=== PATIENT | female | born 1985 | race Caucasian/White ===

== ENCOUNTER 2016-12-22 13:54 | Emergency (ER) | payer OTHER ==
[2016-12-22 14:00] VITALS: BMI 33.2
--- NOTE | 2016-12-22 18:25 | PDOC ---
History of Present Illness <Jesse Richardson - Last Filed: 12/22/16 20:56> - General History Source: Patient Exam Limitations: No Limitations - History of Present Illness Initial Comments: 12/22/16 18:25 My chief complaint: Lower abdominal pain and lower back pain History of present illness: Patient is a 31 year old female with no significant medical history here today complaining of lower abdominal pelvic pain that radiates to her back that has worsened over the last 4 days. Patient describes the pain as a cramping sensation today patient had to leave work due to intensity of pain patient reports the pain currently as a 10. Patient denies any nausea or vomiting or any chills or fever or any diarrhea or constipation. Patient does report having urinary frequency without dysuria, hematuria or urgency. Patient denies any flank tenderness. He does report having unprotected sex with this same partner who she does not live with. Pt. has had vaginal discharge yellowish and fishy smelling this last month. Patient is a 4 para 3 with one . Patient reports that her menstrual cycle was normal this month and finished a couple of days ago. 12/22/16 19:12 12/22/16 19:21 Timing/Duration: getting worse (over 4 days ) Severity: severe (pelvic radiates to back ) Associated Symptoms: reports: denies symptoms. denies: fever/chills, nausea/ vomiting <Franca Hawk - Last Filed: 12/25/16 13:04> - General Chief Complaint: Pain Stated Complaint: ABD PAIN Time Seen by Provider: 12/22/16 18:07 Past History <Jesse Richardson - Last Filed: 12/22/16 20:56> - Past Medical History Other medical history: NONE - Psycho/Social/Smoking Cessation Hx Anxiety: No Suicidal Ideation: No Smoking History: Never smoked Hx Alcohol Use: No Drug/Substance Use Hx: No Substance Use Type: None <Franca Hawk - Last Filed: 12/25/16 13:04> - Past Medical History Allergies/Adverse Reactions: Allergies Allergy/AdvReac Type Severity Reaction Status Date / Time No Known Allergies Allergy Verified 12/22/16 14:00 Home Medications: Ambulatory Orders NK [No Known Home Medication] 12/22/16 Review of Systems - Review of Systems Able to Perform ROS?: Yes Constitutional: No: Symptoms Reported HEENTM: No: Symptoms Reported Respiratory: No: Symptoms reported Cardiac (ROS): No: Symptoms Reported ABD/GI: Yes: Abdominal cramping (pelvic x 4 days ) : Yes: Frequency. No: Burning, Dysuria, Discharge, Flank Pain, Hematuria, Incontinence, Pain, Urgency Musculoskeletal: Yes: Back Pain (lower back b/l ) Integumentary: No: Symptoms Reported Neurological: No: Symptoms reported <Franca Hawk - Last Filed: 12/25/16 13:04> *Physical Exam - Vital Signs Last Vital Signs Temp Pulse Resp BP Pulse Ox 98.7 F 68 20 110/73 99 12/22/16 13:58 12/22/16 13:58 12/22/16 13:58 12/22/16 13:58 12/22/16 13:58 <Jesse Richardson - Last Filed: 12/22/16 20:56> - Vital Signs Last Vital Signs Temp Pulse Resp BP Pulse Ox 98.7 F 68 20 110/73 99 12/22/16 13:58 12/22/16 13:58 12/22/16 13:58 12/22/16 13:58 12/22/16 13:58 - Physical Exam General Appearance: Yes: Appropriately Dressed Respiratory/Chest: positive: Lungs Clear, Normal Breath Sounds. negative: Chest Tender, Respiratory Distress Cardiovascular: positive: Regular Rhythm, Regular Rate, S1, S2 Female Pelvic Exam: positive: cervical os closed, normal adnexa, normal size ovaries, CMT, discharge (yellowish white thin fowl smelling ). negative: lesions, Bartholin mass, adnexal tenderness, vaginal bleeding Gastrointestinal/Abdominal: positive: Normal Bowel Sounds, Tender (pelvic ), Soft. negative: Organomegaly, Increased Bowel Sounds, Distended, Guarding, Rebound, Tenderness, Mass, Hepatomegaly, Spleenomegaly Musculoskeletal: positive: Normal Inspection, Other (paraspinal muscle tenderness b/l lumbar area). negative: CVA Tenderness, CVA Tenderness (R), CVA Tenderness (L), Vertebral Tenderness Integumentary: positive: Normal Color Neurologic: positive: Alert, Normal Response, Responsive <Franca Hawk - Last Filed: 12/25/16 13:04> ED Treatment Course - LABORATORY CBC & Chemistry Diagram: 12/22/16 19:36 12/22/16 19:36 - ADDITIONAL ORDERS Additional order review: Laboratory Results 12/22/16 12/22/16 12/22/16 19:36 19:36 19:06 Sodium 140 Potassium 4.0 Chloride 107 Carbon Dioxide 24 Anion Gap 9 BUN 12 Creatinine 0.5 L Creat Clearance w eGFR > 60 Random Glucose 85 Calcium 8.8 Total Bilirubin 0.7 AST 15 ALT 28 Alkaline Phosphatase 54 Total Protein 7.4 Albumin 4.1 Serum , Qual Negative Urine Color Dkyellow Urine Appearance Slcloudy Urine pH 5.0 Urine Protein Negative Urine Glucose (UA) Negative Urine Ketones Negative Urine Blood Negative Urine Nitrite Negative Urine Bilirubin Negative Urine Urobilinogen Negative Ur Leukocyte Esterase Negative 12/22/16 19:36 RBC 4.11 MCV 93.8 MCHC 35.1 RDW 12.7 MPV 9.3 Neutrophils % 52.9 Lymphocytes % 40.3 H Monocytes % 4.9 Eosinophils % 1.2 Basophils % 0.7 <Jesse Richardson - Last Filed: 12/22/16 20:56> - LABORATORY CBC & Chemistry Diagram: 12/22/16 19:36 12/22/16 19:36 <Franca Hawk - Last Filed: 12/25/16 13:04> Medical Decision Making - Medical Decision Making 12/22/16 18:27 Patient is a 31 year old female with no significant medical history here today complaining of lower abdominal pelvic pain that radiates to her back that has worsened over the last 4 days. Patient describes the pain as a cramping sensation today patient had to leave work due to intensity of pain patient reports the pain currently as a 10. Patient denies any nausea or vomiting or any chills or fever or any diarrhea or constipation. Patient does report having urinary frequency without dysuria, hematuria or urgency. Patient denies any flank tenderness. He does report having unprotected sex with this same partner who she does not live with. Pt has had fishy smelling vaginal discharge for one month. Patient is a 4 para 3 with one . Patient reports that her menstrual cycle was normal this month and finished a couple of days ago. Differential diagnosis to include r/o STD, r/o , miscarriage, r/o UTI, pyelonephrosis. r/o PID pelvic pain radiates to lower back PLAN: cbc with diff cmp urinalysis chlamydia/GC RPR genital culture serum 12/22/16 18:28 12/22/16 19:22 12/22/16 19:23 pt. signed out to MARVIN Richardson <Franca Hawk - Last Filed: 12/25/16 13:04> *DC/Admit/Observation/Transfer - Discharge Dispostion Admit: No <Jesse Richardson - Last Filed: 12/22/16 20:56> <Franca Hawk - Last Filed: 12/25/16 13:04> Diagnosis at time of Disposition: PID (pelvic inflammatory disease) - Discharge Dispostion Disposition: HOME - Patient Instructions Printed Discharge Instructions: DI for Pelvic Inflammatory Disease Additional Instructions: Richie un seguimiento con jones mdico en 2 semanas. [place] los medicamentos segn lo prescrito. Los resultados para el panel de STD de jones swab vaginal debe ser resultado en 72 horas. Si no recibe charisse resultados dentro de pablo plazo, por favor llmenos. Asegrese de lizz los medicamentos con los alimentos. Mant ngase fuera florencio tanto allie sea posible mientras est tomando pablo medicamento. Charisse sntomas deberan mejorar en lucas semana. No hay sexo jose de jesus 3 semanas por favor. Follow up with your doctor in 2 weeks. Take medications as prescribed. The results for STD panel from your vaginal swab should be resulted in 72 hours. If you do not receive your results within this time frame, please call us. Be sure to take medications with food. Stay out of the sun as much as possible while taking this medication. You symptoms should get better within a week. No sex for 3 weeks please. Print Language: BENGALI
[2016-12-22 19:30] LABS: URINE APPEARANCE SLCLOUDY; URINE BILIRUBIN NEGATIVE (NEGATIVE); URINE BLOOD NEGATIVE (NEGATIVE); URINE COLOR DKYELLOW; URINE GLUCOSE (UA) NEGATIVE (NEGATIVE); URINE KETONE NEGATIVE (NEGATIVE); URINE LEUK ESTERASE NEGATIVE (NEGATIVE); URINE NITRITE NEGATIVE (NEGATIVE); URINE PROTEIN NEGATIVE (NEGATIVE); URINE UROBILINOGEN NEGATIVE mg/dL (0.2-1.0)
--- NOTE | 2016-12-22 19:37 | PDOC ---
*Physical Exam - Vital Signs Last Vital Signs Temp Pulse Resp BP Pulse Ox 98.7 F 68 20 110/73 99 12/22/16 13:58 12/22/16 13:58 12/22/16 13:58 12/22/16 13:58 12/22/16 13:58 ED Treatment Course - LABORATORY CBC & Chemistry Diagram: 12/22/16 19:36 12/22/16 19:36 Medical Decision Making - Medical Decision Making 12/22/16 19:36 agree with [facility] WAITRESS/WAITER's evaluation, assessment, and plan. 31 F with suprapubic pain. - Pelvic exam to r/o CMT - UA, UCx - GF/CT amp - UPT Pt signed out to night team at 7PM. *DC/Admit/Observation/Transfer Diagnosis at time of Disposition: PID (pelvic inflammatory disease) - Discharge Dispostion Disposition: HOME - Patient Instructions Printed Discharge Instructions: DI for Pelvic Inflammatory Disease Additional Instructions: Richie un seguimiento con jones mdico en 2 semanas. [place] los medicamentos segn lo prescrito. Los resultados para el panel de STD de jones swab vaginal debe ser resultado en 72 horas. Si no recibe charisse resultados dentro de pablo plazo, por favor llmenos. Asegrese de lizz los medicamentos con los alimentos. Mant ngase fuera florencio tanto allie sea posible mientras est tomando pablo medicamento. Charisse sntomas deberan mejorar en lucas semana. No hay sexo jose de jesus 3 semanas por favor. Follow up with your doctor in 2 weeks. Take medications as prescribed. The results for STD panel from your vaginal swab should be resulted in 72 hours. If you do not receive your results within this time frame, please call us. Be sure to take medications with food. Stay out of the sun as much as possible while taking this medication. You symptoms should get better within a week. No sex for 3 weeks please. Print Language: IRAQI
[2016-12-22 19:40] LABS: BASOPHIL 0.7 % (0-2.0); EOSINOPHIL 1.2 % (0-4.5); MCH 32.9 pg (25.7-33.7); MCHC 35.1 g/dl (32.0-36.0); MEAN CELL VOLUME 93.8 fl (80-96); MEAN PLT VOLUME 9.3 fl (7.5-11.1); NEUTROPHILS 52.9 % (42.8-82.8); PLATELET COUNT 223 K/MM3 (134-434); RDW 12.7 % (11.6-15.6); WHITE BLOOD COUNT 7.1 K/mm3 (4.0-10.0)
[2016-12-22 20:21] LABS: ALBUMIN 4.1 g/dl (3.4-5.0); ANION GAP 9 (8-16); BILIRUBIN,TOTAL 0.7 mg/dL (0.2-1.0); CALCIUM 8.8 mg/dL (8.5-10.1); CO2 24 mmol/L (21-32); CREATININE 0.5 mg/dL (0.55-1.02); GLUCOSE,RANDOM 85 mg/dL (74-106); SGOT/AST 15 U/L (15-37); SGPT/ALT 28 U/L (12-78); TOT PROT 7.4 g/dl (6.4-8.2)
[2016-12-22 20:22] LABS: ALK PHOS 54 U/L (45-117)
[2016-12-22] MEDS ORDERED: AZITHROMYCIN 250 MG TABLET (FP) PO ONE (20:33)
[2016-12-22] MEDS ORDERED: AZITHROMYCIN 250 MG TABLET (FP) ONE (20:53)
[2016-12-22] MEDS ORDERED: CEFTRIAXONE 50 ML ONE (20:53)
[2016-12-22 21:02] VITALS: BP 104/70; PULSE 65; TEMP 98.2
== END 2016-12-22 21:46 | disposition home or self-care (01) ==
LOC: JER 13:54
DX: N73.9 Female pelvic inflammatory disease, unspecified (principal)
CPT/HCPCS: 36415; 80053; 81003; 84703; 85025; 87070; 87086; 87186; 87205; 87491; 87591; 99283-25

== ENCOUNTER 2017-05-20 22:33 | Emergency (ER) | payer SELFPAY ==
[2017-05-20 23:02] VITALS: PULSE 65; BMI 31.5
--- NOTE | 2017-05-20 23:05 | PDOC ---
History of Present Illness - General History Source: Patient Exam Limitations: No Limitations - History of Present Illness Initial Comments: 05/20/17 23:55 The patient is a 31 year old female A1, with no significant past medical history, who presents to the emergency department with, two days of diffuse abdominal pain and emesis. She describes her abdominal pain as a constant, dull, achy pain. Secondary to her symptoms, she reports decreased PO intake, dizziness, and vaginal spotting. As per patient, she took an at home test which was positive. She has had vaginal spotting of about a pad a day. She reports episodes of nonbloody emesis. She denies any care. She denies recent fevers, chills, headache or dizziness. She denies recent nausea, diarrhea or constipation. She denies recent dysuria, frequency, urgency or hematuria. She denies recent chest pain or shortness of breath. Allergies: NKA Past surgical history: None reported. Social history: Nonsmoker. Denies EtOH use and recreational drug use. <Maty Holt - Last Filed: 05/20/17 23:55> <Idania Winchester - Last Filed: 05/21/17 02:42> - General Chief Complaint: Pain Stated Complaint: FATIGUE Time Seen by Provider: 05/20/17 23:00 Past History <Maty Holt - Last Filed: 05/20/17 23:55> - Suicide/Smoking/Psychosocial Hx Smoking History: Never smoked Hx Alcohol Use: No Drug/Substance Use Hx: No Substance Use Type: None <Idania Winchester - Last Filed: 05/21/17 02:42> - Past Medical History Allergies/Adverse Reactions: Allergies Allergy/AdvReac Type Severity Reaction Status Date / Time No Known Allergies Allergy Verified 05/20/17 22:48 Home Medications: Ambulatory Orders NK [No Known Home Medication] 12/22/16 Review of Systems - Review of Systems Able to Perform ROS?: Yes Comments:: 05/20/17 23:56 GENERAL/CONSTITUTIONAL: No fever or chills. No weakness. HEAD, EYES, EARS, NOSE AND THROAT: No change in vision. No ear pain or discharge. No sore throat. CARDIOVASCULAR: No chest pain or shortness of breath. RESPIRATORY: No cough, wheezing, or hemoptysis. GASTROINTESTINAL: +Abdominal pain. +Emesis. No diarrhea or constipation. GENITOURINARY: +Vaginal bleeding. No dysuria, frequency, or change in urination. MUSCULOSKELETAL: No joint or muscle swelling or pain. No neck or back pain. SKIN: No rash NEUROLOGIC: +Dizziness. No headache, loss of consciousness, or change in strength/sensation. ENDOCRINE: No increased thirst. No abnormal weight change. HEMATOLOGIC/LYMPHATIC: No anemia, easy bleeding, or history of blood clots. ALLERGIC/IMMUNOLOGIC: No hives or skin allergy. All Other Systems: Reviewed and Negative <Maty Holt - Last Filed: 05/20/17 23:55> *Physical Exam - Vital Signs Last Vital Signs Temp Pulse Resp BP Pulse Ox 98.9 F 65 16 111/64 100 05/20/17 22:49 05/20/17 22:49 05/20/17 22:49 05/20/17 22:49 05/20/17 22:49 - Physical Exam Comments: 05/20/17 23:56 GENERAL: Awake, alert, and fully oriented, in no acute distress HEAD: No signs of trauma EYES: PERRLA, EOMI, sclera anicteric, conjunctiva clear ENT: Auricles normal inspection, hearing grossly normal, nares patent, oropharynx clear without exudates. Moist mucosa NECK: Normal ROM, supple, no lymphadenopathy, JVD, or masses LUNGS: Breath sounds equal, clear to auscultation bilaterally. No wheezes, and no crackles HEART: Regular rate and rhythm, normal S1 and S2, no murmurs, rubs or gallops ABDOMEN: Soft, nontender, normoactive bowel sounds. No guarding, no rebound. No masses EXTREMITIES: Normal range of motion, no edema. No clubbing or cyanosis. No cords, erythema, or tenderness NEUROLOGICAL: Cranial nerves II through XII grossly intact. Normal speech, normal gait SKIN: Warm, Dry, normal turgor, no rashes or lesions noted. <Maty Holt - Last Filed: 05/20/17 23:55> - Vital Signs Last Vital Signs Temp Pulse Resp BP Pulse Ox 98.9 F 65 16 111/64 100 05/20/17 22:49 05/20/17 22:49 05/20/17 22:49 05/20/17 22:49 05/20/17 22:49 <Idania Winchester - Last Filed: 05/21/17 02:42> ED Treatment Course - LABORATORY CBC & Chemistry Diagram: 05/20/17 23:30 05/20/17 23:30 - ADDITIONAL ORDERS Additional order review: Laboratory Results 05/20/17 05/20/17 22:57 22:57 Urine Color Yellow Urine Appearance Cloudy Urine pH 7.0 D Ur Specific [place] 1.014 Urine Protein Negative Urine Glucose (UA) Negative Urine Ketones Trace H Urine Blood 2+ H Urine Nitrite Negative Urine Bilirubin Negative Urine Urobilinogen 4.0 e.u/dl H Ur Leukocyte Esterase Negative Urine WBC (Auto) 1 Urine RBC (Auto) 16 Ur Epithelial Cells Rare Calcium Oxalate Crystal Few Urine Bacteria Rare Hyaline Casts 1 Urine Mucus Rare Urine HCG, Qual Positive 05/20/17 23:30 RBC 4.14 MCV 93.5 MCHC 34.6 RDW 13.0 MPV 9.2 Neutrophils % 55.1 Lymphocytes % 37.7 Monocytes % 5.5 Eosinophils % 1.2 Basophils % 0.5 - Medications Given in the ED: ED Medications Discontinued Medications Generic Name Dose Route Start Last Admin Trade Name Freq PRN Reason Stop Dose Admin Ondansetron HCl 4 mg 05/20/17 23:20 05/20/17 23:40 Zofran Injection IVPB 05/20/17 23:21 4 mg ONCE ONE Administration Sodium Chloride 1,000 ml 05/20/17 23:07 05/20/17 23:39 Normal Saline - IV 05/20/17 23:08 1,000 ml ONCE ONE Administration <Maty Holt - Last Filed: 05/20/17 23:55> - LABORATORY CBC & Chemistry Diagram: 05/20/17 23:30 05/20/17 23:30 <Idania Winchester - Last Filed: 05/21/17 02:42> *DC/Admit/Observation/Transfer - Attestations Scribe Attestion: 05/20/17 23:56 Documentation prepared by Maty Holt, acting as medical device assembler for Idania Winchester MD. <Maty Holt - Last Filed: 05/20/17 23:55> - Discharge Dispostion Admit: No <Idania Winchester - Last Filed: 05/21/17 02:42> Diagnosis at time of Disposition: 7 weeks gestation of , Morning sickness, Type O blood, Rh positive - Discharge Dispostion Disposition: HOME Condition at time of disposition: Stable - Referrals Referrals: May Ramos MD [Staff Physician] - - Patient Instructions Printed Discharge Instructions: Hyperemesis Gravidarum, Eating for Appropriate Weight Gain During
[2017-05-20] MEDS ORDERED: SODIUM CHLORIDE 0.9% 500 ML INFUS.BAG IV ONE (23:07)
[2017-05-20 23:14] LABS: URINE APPEARANCE CLOUDY; URINE BILIRUBIN NEGATIVE (NEGATIVE); URINE BLOOD 2+ (NEGATIVE); URINE COLOR YELLOW; URINE GLUCOSE (UA) NEGATIVE (NEGATIVE); URINE KETONE TRACE (NEGATIVE); URINE LEUK ESTERASE NEGATIVE (NEGATIVE); URINE NITRITE NEGATIVE (NEGATIVE); URINE PROTEIN NEGATIVE (NEGATIVE); URINE UROBILINOGEN 4.0 E.U/dl mg/dL (0.2-1.0)
[2017-05-20] MEDS ORDERED: ONDANSETRON 4 MG/2 ML VIAL IVPB ONE (23:20)
[2017-05-20] MEDS ORDERED: ONDANSETRON 4 MG/2 ML VIAL ONE (23:31)
[2017-05-20 23:38] LABS: BASO % 0.5 % (0-2.0); EOS % 1.2 % (0-4.5); HEMATOCRIT 38.7 % (32.4-45.2); HEMOGLOBIN 13.4 GM/dL (10.7-15.3); LYMPH % 37.7 % (8-40); MCH 32.3 pg (25.7-33.7); MCHC 34.6 g/dl (32.0-36.0); MEAN CELL VOLUME 93.5 fl (80-96); MEAN PLT VOLUME 9.2 fl (7.5-11.1); MONO % 5.5 % (3.8-10.2); NEUT % 55.1 % (42.8-82.8); PLATELET COUNT 238 K/MM3 (134-434); RBC 4.14 M/mm3 (3.60-5.2); WHITE BLOOD COUNT 8.6 K/mm3 (4.0-10.0)
[2017-05-20 23:45] LABS: CALCIUM OXALATE CRYSTALS FEW /hpf (NONE SEEN); EPI CELLS RARE /HPF (FEW); URINE BACTERIA RARE /hpf (NONE SEEN); URINE HYALINE CAST 1 /lpf; URINE MUCUS RARE
[2017-05-21 00:08] LABS: ALBUMIN 3.8 g/dl (3.4-5.0); ALK PHOS 54 U/L (45-117); ANION GAP 11 (8-16); BILIRUBIN,TOTAL 0.4 mg/dL (0.2-1.0); BLOOD UREA NITROGEN 6 mg/dL (7-18); CALCIUM 8.8 mg/dL (8.5-10.1); CHLORIDE 104 mmol/L (98-107); CO2 23 mmol/L (21-32); CREATININE 0.4 mg/dL (0.55-1.02); GLUCOSE,RANDOM 85 mg/dL (74-106); POTASSIUM 3.7 mmol/L (3.5-5.1); SGOT/AST 11 U/L (15-37); SGPT/ALT 21 U/L (12-78); SODIUM 138 mmol/L (136-145); TOT PROT 7.4 g/dl (6.4-8.2)
[2017-05-21 03:14] VITALS: BP 110/78; TEMP 98.5
== END 2017-05-21 03:14 | disposition home or self-care (01) ==
LOC: JER 22:33
PROC: 3E033GC Introduction of Other Therapeutic Substance into Peripheral Vein, Percutaneous Approach (ICD-10-PCS; principal; 2017-05-20)
DX: O26.891 Other specified pregnancy related conditions, first trimester (principal); O21.0 Mild hyperemesis gravidarum; Z3A.01 Less than 8 weeks gestation of pregnancy
CPT/HCPCS: 36415; 76801-TC; 80053; 81003; 81015; 84702; 84703; 85025; 86850; 86900; 86901; 99282-25

== ENCOUNTER 2017-12-29 07:35 | Inpatient (IN) | payer OTHER ==
[2017-12-29] MEDS ORDERED: AMPICILLIN SODIUM 2 GM VIAL ONE (08:14)
[2017-12-29] MEDS ORDERED: ELECTROLYTE-148 SOLN 500 ML IV ONE (08:15)
[2017-12-29] MEDS ORDERED: AMPICILLIN - 2 GM in SODIUM CHLORIDE 100 ML IVPB ONE (08:20)
[2017-12-29 08:53] LABS: BASO % 0.4 % (0-2.0); EOS % 0.8 % (0-4.5); HEMATOCRIT 32.6 % (32.4-45.2); HEMOGLOBIN 11.2 GM/dL (10.7-15.3); LYMPH % 28.4 % (8-40); MCH 33.3 pg (25.7-33.7); MCHC 34.4 g/dl (32.0-36.0); MEAN CELL VOLUME 96.8 fl (80-96); MEAN PLT VOLUME 8.5 fl (7.5-11.1); MONO % 5.3 % (3.8-10.2); NEUT % 65.1 % (42.8-82.8); PLATELET COUNT 168 K/MM3 (134-434); RBC 3.37 M/mm3 (3.60-5.2); RDW 14.7 % (11.6-15.6); WHITE BLOOD COUNT 5.4 K/mm3 (4.0-10.0)
[2017-12-29 09:06] VITALS: BMI 33.6
[2017-12-29 09:30] LABS: INR 0.91 (0.83-1.09); PROTHROMBIN TIME (PATIENT) 10.3 SEC (9.7-13.0)
[2017-12-29 09:32] LABS: ANION GAP 11 MMOL/L (8-16); BLOOD UREA NITROGEN 6 mg/dL (7-18); CALCIUM 8.1 mg/dL (8.5-10.1); CHLORIDE 109 mmol/L (98-107); CO2 20 mmol/L (21-32); CREATININE 0.3 mg/dL (0.55-1.02); GLUCOSE,RANDOM 85 mg/dL (74-106); POTASSIUM 3.6 mmol/L (3.5-5.1); SODIUM 140 mmol/L (136-145)
[2017-12-29] MEDS ORDERED: CITRIC ACID/SODIUM CITRATE 30 ML UNIT-DOSE CUP PO ONE (09:41)
[2017-12-29] MEDS ORDERED: ELECTROLYTE-148 SOLN 1,000 ML IV SCH (09:45)
--- NOTE | 2017-12-29 10:13 | HP ---
Past Medical History - Primary Care Physician PCP:: May Ramos - Admission Chief Complaint: 32 yrs , previous c/section x2 , requests for voluntory sterlization, . h/o sropm at 6.30 am , onset LP at 7.20 AM . by sono 38.4 weeks . by dtaes 39.2 weeks History of Present Illness: PNC at [address] [place] [address] . panel O pos, rpr nr, rubella immune , hbsag neg, quantiferon neg, , hiv neg, gbs pos , .gc/c/t neg 1 hr gtt 153. 3 hr gtt 74, 164, 140, 83 ( wnl) , sickle neg treated for bv treated with flagyl po . serial sonogram were done by [facility] to check growth . 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 Weeks Gestation by Dates: 39.1 ...EDC by Dates: 01/03/18 ...EDC by Sono: 01/08/18 (38.4 weeks ) Additional OB History: G1 08/20/2003 , 40 wks 7lbs. G2 01/08/2006 primaruy c/section 8lb breech 38 weeks. G3 10/20/10 repeat c/section 39 weeks 7lbs. g4 2010 Ind ab Infectious Disease: Yes: STD's (h/o chlamydia) Psych: Yes: Other (no h/o mental illness) Endocrine: No: Hypothyroidism - Past Surgical History Past Surgical History: Yes: (01/08/2006, 10/20/10) Hx Myomectomy: No Hx Transabdominal Cerclage: No - Smoking History Smoking history: Never smoked Have you smoked in the past 12 months: No - Alcohol/Substance Use Hx Alcohol Use: No History of Substance Use: reports: None Home Medications - Allergies Allergies/Adverse Reactions: Allergies Allergy/AdvReac Type Severity Reaction Status Date / Time No Known Allergies Allergy Verified 12/05/17 02:53 - Home Medications Home Medications: Ambulatory Orders NK [No Known Home Medication] 12/22/16 Physical Exam - Maternity Vital Signs: Vital Signs Temperature 98.8 F 12/29/17 07:35 Pulse Rate 76 12/29/17 07:35 Respiratory Rate 20 12/29/17 07:35 Blood Pressure 103/64 12/29/17 07:35 O2 Sat by Pulse Oximetry (%) Selected Entries 12/29/17 07:35 Weight 178 lb Constitutional: Yes: Well Nourished, Moderate Distress, Obese Eyes: Yes: WNL HENT: Yes: Normocephalic Neck: Yes: WNL Cardiovascular: Yes: WNL, Regular Rate and Rhythm Lungs: Clear to auscultation Breast(s): Yes: WNL - Abdominal Exam/OB Fundal Height: 40 Number of Fetuses: Single Presentation: Vertex Contractions: Yes Regularity: Regular (3-5 min) Intensity: Mild/Mod Monitor Mode: External Heart Rate Location: [facility] Category: I Accelerations: Uniform Decelerations: None - Vaginal Exam/OB Speculum Exam: No Dilatation (cm): 3-4 Effacement (%): 90 Amniotic Membrane Status: Ruptured Nitrazine Test: Positive Amniotic Fluid: Yes: Clear Presentation: Vertex/Position Station: -3 (-3/-2) - Physical Exam Musculoskeletal: Yes: WNL Extremities: Yes: WNL. No: Calf Tenderness Edema: Yes Edema: LLE: 1+, RLE: 1+ Integumentary: Yes: WNL, Incision (pfannensteilscar) Deep Tendon Reflex Grade: Normal +2 ...Motor Strength: WNL Psychiatric: Yes: WNL, Alert, Oriented - Labs Lab Results: CBC, BMP 12/29/17 08:30 12/29/17 08:30 Laboratory Tests 12/29/17 08:30 PT with INR 10.30 INR 0.91 PTT (Actin FS) 27.0 Hemorrhage Risk Assessment - Risk Factors Medium Risk Factors: Yes: Prior , uterine surgery,or multiple laparotomies Risk Score: 1 Risk Level: Medium Risk Problem List - Problems (1) with 39 completed weeks gestation Code(s): Z3A.39 - 39 WEEKS GESTATION OF (2) Previous section Code(s): Z98.891 - HISTORY OF UTERINE SCAR FROM PREVIOUS SURGERY (3) First stage of labor established Code(s): UMN5722 - (4) Multiparity Code(s): Z64.1 - PROBLEMS RELATED TO MULTIPARITY (5) SROM (spontaneous rupture of membranes) Code(s): UED7203 - (6) Obesity (BMI 30.0-34.9) Code(s): E66.9 - OBESITY, UNSPECIFIED Assessment/Plan 32 yrs , 39.2 weeks by dates & 38.4 weeks by sono admitted due to srom & labor requests for repeat c/section & voluntory sterlization plan Repeat LFTC/Section + BTL
[2017-12-29] MEDS ORDERED: morphine SULFATE/Preservative Free 0.5 MG/ML (1cc Syringe) ONE (10:33)
[2017-12-29] MEDS ORDERED: ONDANSETRON 4 MG/2 ML VIAL IVPUSH PRN (10:51)
[2017-12-29] MEDS ORDERED: ACETAMINOPHEN 325 MG TABLET (FP) PO PRN (10:51)
[2017-12-29] MEDS ORDERED: OXYTOCIN 20 UNITS in 0.9% NS 20 UNIT/1,000 ML INFUS.BAG IV ONE ×2 (11:11→13:43)
[2017-12-29] MEDS ORDERED: ceFAZolin SODIUM 1 GM VIAL ONE ×2 (11:17→16:17)
[2017-12-29] MEDS ORDERED: OXYTOCIN 10 UNITS/ML VIAL ONE ×2 (11:18)
[2017-12-29] MEDS ORDERED: MIDAZOLAM HCL 2 MG/2 ML SINGLE DOSE VIAL ONE (11:18)
[2017-12-29 11:51] LABS: ARTERIAL BLD GAS O2 SATURATION 75.8 % (90-98.9); ARTERIAL BLOOD GAS BASE EXCESS -2.8 meq/l (-2-2); ARTERIAL BLOOD GAS PCO2 40.4 mmHg (35-45); ARTERIAL BLOOD GAS PO2 35.9 mmHg (80-100); ARTERIAL BLOOD GAS pH 7.36 (7.35-7.45)
[2017-12-29 11:58] LABS: VENOUS PC02 QNS mmHg (38-52); VENOUS PO2 QNS mmHg (28-48)
[2017-12-29 12:00] LABS: VENOUS PH QNS (7.32-7.42)
[2017-12-29] MEDS ORDERED: SENNOSIDES/DOCUSATE COMBO (SENNA PLUS) TABLET (UD) PO PRN (12:44)
[2017-12-29] MEDS ORDERED: METHYLERGONOVINE MALEATE 0.2 MG/1 ML AMP IM PRN (12:44)
--- NOTE | 2017-12-29 13:04 | PN ---
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 Indication : 38.4 weeks previous c/section in labor ,srom, voluntory sterlization , obesity intra op ,course uneventful
--- NOTE | 2017-12-29 13:12 | OP ---
Operative Note - Note: Operative Date: 12/29/17 Pre-Operative Diagnosis: 38.4 weeks, previous c/sx2 , srom,labor, voultory sterlization, obesity Operation: Repeat LFTC/Section , BTL Findings: 11,00AM baby Girl ROP position, baby head moved up in the uterus , delivered as footling breech presentation , 9/9 , wt 7'15" , both tubes & ovaries normal. both tubes ligated & cut by modified renae technique Dr Anton Bernard Judo Teacher present in the room Surgeon: May Ramos Medical Sociologist: Erendira Redman Anesthesiologist/DIP LUBE OPERATOR: Alhaji Sun Anesthesia: Spinal Specimens Removed: placenta. cord blood segment for cord gas. cord blood Estimated Blood Loss (mls): 700 Drains, Volume Out (mls): 200 (rubio output will color ) Operative Report Dictated: Yes
[2017-12-29] MEDS: OXYTOCIN 20 UNITS in 0.9% NS 20 UNIT/1,000 ML INFUS.BAG IV SCH ×2 (13:41→23:00)
[2017-12-29] MEDS: IBUPROFEN 800 MG/8 ML IJ IVPB PRN (13:48)
[2017-12-29] MEDS ORDERED: IBUPROFEN 800 MG/8 ML IJ IVPB ONE (13:51)
--- NOTE | 2017-12-29 14:32 | OP ---
DATE OF OPERATION: 12/29/2017 PREOPERATIVE DIAGNOSES: At 38-4/7 weeks, previous sections x2, spontaneous rupture of membranes, and active labor, voluntary sterilization. 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 FINDINGS: This is a 32-year-old, 5, para 3-0-1-3. She is 38-4/7 weeks by sonogram, 39-2/7 weeks by dates, has rupture of membranes spontaneously since 6: 30 a.m. and onset of labor at 7:20 a.m. Patient was asif regularly between 2 to 4 minutes and the cervix was dilated up to 5 to 6 cm, 100%, -3 station at 10.30 AM before the section. After the delivery, baby girl, 9 and 9, ROP position, weight 7 pounds 15 ounces, 20 inches length. PROCEDURE: Abdomen was shaved, prepped, Burrows catheter was placed. She was taken to the operating room table and spinal anesthesia was given. She was placed in supine position. The abdomen was painted and draped in the usual manner. Pfannenstiel incision was made through skin, subcutaneous tissue. Anterior rectus sheath was incised transversely. Bleeding points were clamped and cauterized. Rectus muscle was from the rectus sheath, parietal peritoneum was opened vertically. Then low-flap parietal peritoneum was incised and lower uterine segment was isolated. Amniotic fluid was clear. The baby was in ROP position and was brought up in the incision and the baby moved up into the uterus and it was difficult to bring the head down so delivered as a footling breech presentation, first one leg, then the second leg was brought out, and then the body and arms and lastly the head was delivered. It was a baby girl, at 11 a.m. Baby's cord was clamped, cut, cord blood was collected. Dr. Marco Antonio Walton, o and m supervisor, was present in the room. 9 and 9. Baby's weight is 7 pounds 15 ounces, and the height is 20 inches long. Cord segment was sent for cord blood gas and the cord blood was collected. Placenta was removed completely with the membranes. Uterine cavity was cleaned. Then the uterus incision was closed in 2 layers, the first layer with a continuous locking with a Biosyn 0 suture, 2nd layer was a continuous intermittent locking with a Biosyn 0 suture. Hemostasis was verified and bladder peritoneum also was closed with a Biosyn 0 suture. Both ovaries were normal. First the left tube, then the right tube, in the mid ampullary portion, was doubly ligated with a plain 2-0 catgut and the portion of the tube above the ligature was cut and sent for Pathology examination and endosalpinx was cauterized. This procedure was done on both tubes, and the tubes were sent for pathology examination separately in container. Then irrigation was done. Sponge, instrument, needle count was correct and the closure of the abdomen was done. Parietal peritoneum was closed with a Vicryl 0 suture. Muscles were reapproximated together with a Vicryl 0 suture, then interrupted sutures were taken. Hemostasis was checked underneath the rectus sheath flaps. Then anterior rectus sheath was closed with 0 Vicryl suture, continuous sutures were taken. Subcutaneous tissue hemostasis was verified and the subcutaneous tissue was approximated with Biosyn 0 suture, interrupted sutures were taken and superficially 3-0 Vicryl suture was taken to approximate, and then intradermal sutures were taken with a 3-0 Vicryl suture. Steri-Strips applied. Pressure dressing was given. Blood clots were removed from the vagina. Pressure dressing applied. Estimated blood loss was 700 mL. Intraoperative urine output was 200 mL, it was will color, and she received 1 g of IV Ancef prior to the incision, and she was given 2 g of ampicillin at the time of admission at 8:30 a.m. Patient tolerated procedure well and she was transferred to the recovery room in stable condition. Antoinette [id number] MTDD
[2017-12-29] MEDS ORDERED: DEXTROSE 5%-WATER - 50 ML IVPB ONE (16:17)
[2017-12-29] MEDS: CEFAZOLIN 1 GM in DEXTROSE 5%-WATER - 50 ML IVPB SCH (17:12)
[2017-12-30] MEDS ORDERED: ceFAZolin SODIUM 1 GM VIAL ONE ×2 (01:18→09:45)
[2017-12-30] MEDS ORDERED: DEXTROSE 5%-WATER - 50 ML IVPB ONE ×2 (01:18→09:45)
[2017-12-30] MEDS: CEFAZOLIN 1 GM in DEXTROSE 5%-WATER - 50 ML IVPB SCH ×2 (01:23→09:48)
[2017-12-30] MEDS: IBUPROFEN 800 MG/8 ML IJ IVPB PRN (05:27)
[2017-12-30] MEDS ORDERED: OXYTOCIN 20 UNITS in 0.9% NS 20 UNIT/1,000 ML INFUS.BAG IV ONE (06:02)
--- NOTE | 2017-12-30 07:14 | PN ---
Progress Note (short form) - Note Progress Note: pod 1 s/p repeat c/s , BTL doing well, no excess vaginal bleeding CBC, BMP 12/29/17 08:30 12/29/17 08:30 Last Vital Signs Temp Pulse Resp BP Pulse Ox 98.3 F 88 20 107/57 98 12/30/17 05:30 12/30/17 05:30 12/30/17 05:55 12/30/17 05:30 12/29/17 21:00 abdomen soft, no distension, no cva inccision dry lochia mild rubio clear urine plan ambulate, cbc, advance diet
[2017-12-30] MEDS ORDERED: oxyCODONE HCL 5 MG TABLET PO PRN ×2 (08:00)
[2017-12-30 08:42] LABS: BASO % 0.1 % (0-2.0); EOS % 0.2 % (0-4.5); HEMATOCRIT 28.9 % (32.4-45.2); LYMPH % 15.1 % (8-40); MCH 33.6 pg (25.7-33.7); MCHC 34.5 g/dl (32.0-36.0); MEAN CELL VOLUME 97.4 fl (80-96); MEAN PLT VOLUME 8.7 fl (7.5-11.1); MONO % 4.4 % (3.8-10.2); NEUT % 80.2 % (42.8-82.8); PLATELET COUNT 151 K/MM3 (134-434); RBC 2.97 M/mm3 (3.60-5.2); RDW 14.6 % (11.6-15.6); WHITE BLOOD COUNT 8.9 K/mm3 (4.0-10.0)
[2017-12-30] MEDS: SIMETHICONE 80 MG TAB.CHEW (FP) PO PRN ×3 (09:48→21:42)
[2017-12-30] MEDS: PRENATAL VITAMINS W/ FOLIC ACID TABLET (FP) PO SCH (09:49)
[2017-12-30] MEDS: ACETAMINOPHEN 325 MG TABLET (FP) PO PRN ×3 (09:49→21:43)
--- NOTE | 2017-12-30 11:04 | PN ---
Progress Note, Physician Chief Complaint: day 1 s/p csection - Current Medication List Current Medications: Active Medications Acetaminophen (Tylenol -) 650 mg PO Q4H PRN PRN Reason: PAIN LEVEL 1-5 Last Admin: 12/30/17 09:49 Dose: 650 mg Bisacodyl (Dulcolax Suppository -) 10 mg RC PRN PRN PRN Reason: CONSTIPATION Diphenhydramine HCl (Benadryl Injection -) 25 mg IVPUSH Q4H PRN PRN Reason: Pruritis Ferrous Sulfate (Feosol -) 325 mg PO BID [facility] Cefazolin Sodium 1 gm/ (Dextrose) 50 mls @ 100 mls/hr IVPB Q8H-IV TRAMAINE Stop: 12/30/17 17:59 Last Admin: 12/30/17 09:48 Dose: 100 mls/hr Oxytocin/Sodium Chloride (Normal Saline+20 Units Oxytocin -) 20 unit in 1,000 mls @ 125 mls/hr IV ASDIR TRAMAINE Last Admin: 12/29/17 23:00 Dose: 125 mls/hr Ibuprofen (Motrin -) 600 mg PO Q4H PRN PRN Reason: PAIN LEVEL 1-5 Ibuprofen (Caldolor Injection -) 800 mg IVPB Q8H PRN PRN Reason: PAIN LEVEL 1-5 Stop: 12/30/17 12:43 Last Admin: 12/30/17 05:27 Dose: 800 mg Methylergonovine Maleate (Methergine Injection -) 0.2 mg IM Q4H PRN PRN Reason: Excessive Bleeding (L&D) Oxycodone HCl (Roxicodone -) 5 mg PO Q4H PRN PRN Reason: PAIN LEVEL 4 - 6 Last Admin: 12/30/17 09:49 Dose: 5 mg Oxycodone HCl (Roxicodone -) 10 mg PO Q4H PRN PRN Reason: PAIN LEVEL 7 - 10 Multivit/Folic Acid/Iron ( Vitamins (Sjr) -) 1 tab PO DAILY [facility] Last Admin: 12/30/17 09:49 Dose: 1 tab Senna/Docusate Sodium (Pericolace -) 2 tablet PO HS PRN PRN Reason: CONSTIPATION Simethicone (Mylicon -) 80 mg PO Q4H PRN PRN Reason: GAS Last Admin: 12/30/17 09:48 Dose: 80 mg - Objective Vital Signs: Vital Signs Temperature 98.4 F 12/30/17 09:01 Pulse Rate 74 12/30/17 09:01 Respiratory Rate 20 12/30/17 09:01 Blood Pressure 106/66 12/30/17 09:01 O2 Sat by Pulse Oximetry (%) 98 12/29/17 21:00 Labs: CBC, BMP 12/30/17 08:17 12/29/17 08:30 INR, PTT INR 0.91 (0.83-1.09) 12/29/17 08:30 Assessment/Plan s/p spinal with duramorph for csection. No AVELAR, back pain, no other anesthetic issues or complications. Minimal pain
[2017-12-30] MEDS ORDERED: BISACODYL 10 MG SUPP.RECT RC PRN (12:44)
[2017-12-30] MEDS: IBUPROFEN 600 MG TABLET (FP) PO PRN ×2 (15:56→21:43)
[2017-12-30] MEDS: FERROUS SO4 325 MG TABLET (FP) PO SCH (21:43)
[2017-12-31] MEDS: ACETAMINOPHEN 325 MG TABLET (FP) PO PRN ×3 (04:26→21:05)
[2017-12-31] MEDS: SIMETHICONE 80 MG TAB.CHEW (FP) PO PRN ×3 (04:26→21:05)
[2017-12-31] MEDS: IBUPROFEN 600 MG TABLET (FP) PO PRN ×3 (04:27→21:05)
[2017-12-31] MEDS: PRENATAL VITAMINS W/ FOLIC ACID TABLET (FP) PO SCH (09:41)
[2017-12-31] MEDS: FERROUS SO4 325 MG TABLET (FP) PO SCH ×2 (09:41→21:05)
--- NOTE | 2017-12-31 22:51 | PN ---
Progress Note (short form) - Note Progress Note: pod 2 doing well, no c/o. passing gas CBC, BMP 12/30/17 08:17 12/29/17 08:30 Last Vital Signs Temp Pulse Resp BP Pulse Ox 98.8 F 64 20 99/62 98 12/31/17 20:59 12/31/17 20:59 12/31/17 20:59 12/31/17 20:59 12/29/17 21:00 abdomen soft, no distension, no cva incision dry, clean no calf tenderness plan ambulate , cbc in am
--- NOTE | 2018-01-01 07:59 | PN ---
Progress Note (short form) - Note Progress Note: pod 3 doing well, ambulating, passing gas, no excess vaginal bleeding CBC, BMP 12/30/17 08:17 12/29/17 08:30 Last Vital Signs Temp Pulse Resp BP Pulse Ox 98.8 F 64 20 99/62 98 12/31/17 20:59 12/31/17 20:59 12/31/17 20:59 12/31/17 20:59 12/29/17 21:00 abdomen soft, no distension, no cva incision dry, clean no calf tenderness plan ambulate cbc in am
[2018-01-01] MEDS: ACETAMINOPHEN 325 MG TABLET (FP) PO PRN (08:16)
[2018-01-01] MEDS: SIMETHICONE 80 MG TAB.CHEW (FP) PO PRN (08:16)
[2018-01-01] MEDS: IBUPROFEN 600 MG TABLET (FP) PO PRN (08:17)
[2018-01-01 08:24] LABS: BASO % 0.3 % (0-2.0); EOS % 1.7 % (0-4.5); HEMATOCRIT 27.8 % (32.4-45.2); HEMOGLOBIN 9.7 GM/dL (10.7-15.3); MCH 33.6 pg (25.7-33.7); MCHC 34.7 g/dl (32.0-36.0); MEAN CELL VOLUME 96.7 fl (80-96); MEAN PLT VOLUME 8.1 fl (7.5-11.1); MONO % 4.9 % (3.8-10.2); NEUT % 70.1 % (42.8-82.8); PLATELET COUNT 163 K/MM3 (134-434); RBC 2.87 M/mm3 (3.60-5.2); RDW 14.4 % (11.6-15.6); WHITE BLOOD COUNT 6.2 K/mm3 (4.0-10.0)
[2018-01-01] MEDS: PRENATAL VITAMINS W/ FOLIC ACID TABLET (FP) PO SCH (10:01)
[2018-01-01] MEDS: FERROUS SO4 325 MG TABLET (FP) PO SCH (10:01)
[2018-01-01 12:12] VITALS: BP 105/59; PULSE 71; TEMP 98.6
--- NOTE | 2018-01-01 17:17 | DS ---
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 No: Distention Renal/: Yes: WNL. No: CVA Tenderness - Left, CVA Tenderness - Right External Genitalia: Yes: Normal ....Post : Yes: Uterus firm, Uterus non-tender, Moderate lochia rubra Breast(s): Yes: WNL (BF , breast full.) Musculoskeletal: Yes: WNL Extremities: Yes: WNL. No: Calf Tenderness Edema: LLE: 1+, RLE: 1+ Integumentary: Yes: WNL Wound/Incision: Yes: Clean/Dry, Well Approximated, Sutures Intact, Steri Strips , Open to air. 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 Indication : 38.4 weeks previous c/section in labor ,srom, voluntory sterlization , obesity intra op ,course uneventful post op course uneventful. pt discharged by Dr Heller 01/01/18. Discharge Summary Reason For Visit: Condition: Stable - Instructions Diet, Activity, Other Instructions: Post Instructions DIET: Continue good diet high in protein, calcium, and iron rich foods. Drink at least eight (8) glasses of water daily in addition to other fluids. ct Regular diet MEDICATIONS: Continue vitamins and iron as previously directed. Motrin and Tylenol may be taken for minor discomfort. ACTIVITY: Mild to moderate exercise may be started in two (2) weeks. Take frequent rest periods. Resume normal activity after six (6) week check up. WOUND CARE OF OPERATIVE SITE: Continue use of perineal bottle until vaginal discharge stops. Keep area clean. Shower daily. Keep abdominal wound dry. Report any drainage or redness to physician. Tub baths, tampons and douches are not permitted for [address] Breast feeding & or Bottle feeding BREAST CARE: (For those that are not ): If engorgement occurs: Wear tight fitting bra. Take Tylenol or Motrin for pain. Apply cold packs (ice in bags to each breast ) FAMILY PLANNING: There are many control alternatives to pursue and they should be discussed at your first office visit. You may resume sexual activity after your six (6) week check up. (Remember, is not a contraceptive) NEXT PHYSICIAN APPOINTMENT: Be certain to call for a one (1) week appointment, unless otherwise directed. Rtc for wound check Call Clinic or got to Emergency Dept if you have any of the following: Heavy vaginal bleeding Painful urination Leg pain Unusual odor noted to vaginal bleeding High fever Red streaking noted on breast Referrals: May Ramos MD [Staff Physician] - Disposition: HOME - Home Medications Comprehensive Discharge Medication List: Ambulatory Orders Acetaminophen [Tylenol .Regular Strength -] 500 mg PO Q4H PRN #30 tablet Ferrous Sulfate [Feosol] 325 mg PO BID #60 tab 01/01/18 Ibuprofen [Motrin -] 600 mg PO Q4H PRN #30 tablet 01/01/18 Vitamins (Sjr) - 1 tab PO DAILY #30 tablet 01/01/18
--- NOTE | 2018-01-09 16:55 | PATH ---
Surgical Pathology Report Patient Name: LAURO KAY [facility]. Rec. #: [id number] /Age/Gender: 1985 (Age: 32) / F Account: [id number] Location: [facility] OBS/SOLUTION COORDINATOR Taken: 12/29/2017 Received: 12/30/2017 Reported: 01/09/2018 Physicians: May Ramos M.D. Specimen(s) Received A: PLACENTA B: RIGHT FALLOPIAN TUBE C: LEFT FALLOPIAN TUBE Clinical History 39.1 weeks gestation, history of chlamydia 2010, Final Diagnosis A. PLACENTA: THIRD TRIMESTER PLACENTA WITH FOCAL PARENCHYMAL HEMORRHAGE (1CM IN GREATEST DIMENSION). TRIVASCULAR CORD. MEMBRANES WITH NO DIAGNOSTIC ABNORMALITIES. B. RIGHT PORTION OF FALLOPIAN TUBE, RESECTION: COMPLETE CROSS SECTION OF THE FALLOPIAN TUBE IDENTIFIED. C. LEFT PORTION OF FALLOPIAN TUBE, RESECTION: COMPLETE CROSS SECTION OF THE FALLOPIAN TUBE IDENTIFIED. Electronically Signed Mile Callahan M.D. Gross Description A. The specimen is received fresh labeled placenta and is a 484 gram, 16.5 x 13.0 x 3.0 cm. placenta with attached membranes and umbilical cord. The attached membranes are hernández, translucent with focal opacities and insert marginally. The umbilical cord measures 8 cm. in length and averages 1.4 cm. in diameter. The cord inserts eccentrically, 2 cm. to the nearest margin. No true knots or strictures are identified. Cut surface of the umbilical cord reveals 3 vessels. The surface is esquivel-blue with minimal fibrin deposition and appropriate caliber vessels. The maternal surface is red-brown with focal defects. Sectioning reveals a 1.0 cm in greatest dimension hemorrhagic intraparenchymal lesion. The remaining placental parenchyma is red-brown and spongy. Bull Gang Supervisor sections are submitted in three cassettes as follows: 1-membrane roll and umbilical cord; 2-lesion; 3-additional full thickness section of placenta. B. Received in formalin labeled "right portion of fallopian tube," is a 1.5 cm in length portion of fallopian tube. No fimbria are present. The outer surface is hernández-krueger and smooth. Sectioning reveals an unremarkable lumen. Bull Gang Supervisor sections are submitted in one cassette. C. Received in formalin labeled "left fallopian tube," is a 1.2 cm in length portion of fallopian tube. No fimbria are present. The outer surface is hernández esquivel and smooth. Sectioning reveals an unremarkable lumen. Bull Gang Supervisor sections are submitted in one cassette. 01/06/2018 [facility]01/06/2018
== END 2018-01-01 12:25 | disposition home or self-care (01) | DRG 540 ==
LOC: JLDR 07:35 → J3W 14:00
PROVIDERS: ADMIT Obstetrics & Gynecology; ATTEND Obstetrics & Gynecology
PROC: 10D00Z1 Extraction of Products of Conception, Low, Open Approach (ICD-10-PCS; principal; 2017-12-29)
PROC: 0UL70ZZ Occlusion of Bilateral Fallopian Tubes, Open Approach (ICD-10-PCS; 2017-12-29)
DX: O34.211 Maternal care for low transverse scar from previous cesarean delivery (principal); O99.214 Obesity complicating childbirth; E66.9 Obesity, unspecified; O32.8XX0 Maternal care for other malpresentation of fetus, not applicable or unspecified; Z68.33 Body mass index [BMI] 33.0-33.9, adult; Z3A.39 39 weeks gestation of pregnancy; Z37.0 Single live birth; Z30.2 Encounter for sterilization
CPT/HCPCS: 36415; 36600; 80048; 82803; 85025; 85610; 85730; 86593; 86850; 86900; 86901; 88302-TC; 88307-TC

== ENCOUNTER 2022-01-12 06:02 | Inpatient (IN) | payer OTHER ==
[2022-01-12 07:59] LABS: BASO % 0.5 % (0-2.0); EOS % 1.8 % (0-4.5); HEMATOCRIT 23.6 % (32.4-45.2); HEMOGLOBIN 8.4 GM/dL (10.7-15.3); LYMPH % 38.2 % (8-40); MCH 33.7 pg (25.7-33.7); MCHC 35.7 g/dl (32.0-36.0); MEAN CELL VOLUME 94.3 fl (80-96); MEAN PLT VOLUME 8.3 fl (7.5-11.1); MONO % 5.6 % (3.8-10.2); NEUT % 53.9 % (42.8-82.8); PLATELET COUNT 249 10^3/uL (134-434); RDW 13.3 % (11.6-15.6); WHITE BLOOD COUNT 7.3 K/mm3 (4.0-10.0)
[2022-01-12 08:02] LABS: CALCIUM 8.1 mg/dL (8.5-10.1)
[2022-01-12 08:03] LABS: ALBUMIN 3.4 g/dl (3.4-5.0); BLOOD UREA NITROGEN 7.6 mg/dL (7-18)
[2022-01-12 08:06] LABS: CREATININE 0.5 mg/dL (0.55-1.3)
[2022-01-12 08:07] LABS: BILIRUBIN,TOTAL 0.4 mg/dL (0.2-1); TOT PROT 6.6 g/dl (6.4-8.2)
[2022-01-12 08:17] LABS: INR 0.91 (0.83-1.09); PROTHROMBIN TIME (PATIENT) 10.5 SEC (9.7-13.0)
[2022-01-12 08:20] LABS: ACTIVATED PTT 28.8 SECONDS (25.2-36.5)
[2022-01-12] MEDS ORDERED: LACTATED RINGERS SOLUTION 1,000 ML/1,000 ML INFUS.BAG IV ONE (10:30)
[2022-01-12] MEDS ORDERED: LACTATED RINGERS SOLUTION 1,000 ML/1,000 ML INFUS.BAG IV STA (10:55)
[2022-01-12 11:00] LABS: BASO % 0.2 % (0-2.0); EOS % 0.2 % (0-4.5); HEMATOCRIT 22.1 % (32.4-45.2); LYMPH % 29.2 % (8-40); MCH 33.7 pg (25.7-33.7); MEAN CELL VOLUME 93.6 fl (80-96); MEAN PLT VOLUME 8.4 fl (7.5-11.1); MONO % 3.6 % (3.8-10.2); NEUT % 66.8 % (42.8-82.8); PLATELET COUNT 279 10^3/uL (134-434); RBC 2.36 M/mm3 (3.60-5.2); RDW 13.2 % (11.6-15.6); WHITE BLOOD COUNT 7.7 K/mm3 (4.0-10.0)
[2022-01-12] MEDS ORDERED: PANTOPRAZOLE SODIUM 160 MG in SODIUM CHLORIDE 290 ML IVPB SCH (11:00)
[2022-01-12 11:09] LABS: INR 0.95 (0.83-1.09); PROTHROMBIN TIME (PATIENT) 10.9 SEC (9.7-13.0)
[2022-01-12 11:12] LABS: ACTIVATED PTT 21.8 SECONDS (25.2-36.5)
[2022-01-12] MEDS ORDERED: LIDOCAINE HCL 1%, 10 MG/ML (50 mL VIAL) SQ ONE (11:24)
[2022-01-12] MEDS ORDERED: LIDOCAINE 1%/EPI 1:100000 (20 ML MULTI DOSE VIAL) ONE (11:32)
[2022-01-12] MEDS: LACTATED RINGERS SOLUTION 1,000 ML/1,000 ML INFUS.BAG IV SCH (12:36)
[2022-01-12 13:05] LABS: EPI CELLS 26 /uL (0-25.1); HYALINE CASTS 2 /uL (0-3.1); URINE APPEARANCE CLEAR; URINE BACTERIA 14 /uL (0-1359); URINE BILIRUBIN NEGATIVE (NEGATIVE); URINE COLOR YELLOW; URINE GLUCOSE (UA) NEGATIVE (NEGATIVE); URINE KETONE NEGATIVE (NEGATIVE); URINE LEUK ESTERASE NEGATIVE (NEGATIVE); URINE NITRITE NEGATIVE (NEGATIVE); URINE PROTEIN 1+ (NEGATIVE); URINE RBC 11 /uL (0-23.9); URINE UROBILINOGEN 0.2 mg/dL (0.2-1.0); URINE WBC 6 /uL (0-25.8)
[2022-01-12 13:34] LABS: ARTERIAL BLD GAS O2 SATURATION 98.6 % (95-98); ARTERIAL BLOOD GAS BASE EXCESS -1.9 mmol/L (-2-2); ARTERIAL BLOOD GAS PO2 122.3 mmHg (80-100); ARTERIAL BLOOD GAS pH 7.452 (7.350-7.450)
[2022-01-12 13:34] LABS: BASO % 0.2 % (0-2.0); EOS % 0.2 % (0-4.5); HEMATOCRIT 24.5 % (32.4-45.2); HEMOGLOBIN 8.5 GM/dL (10.7-15.3); LYMPH % 22.6 % (8-40); MCH 32.6 pg (25.7-33.7); MCHC 34.8 g/dl (32.0-36.0); MEAN CELL VOLUME 93.8 fl (80-96); MEAN PLT VOLUME 8.2 fl (7.5-11.1); MONO % 4.4 % (3.8-10.2); NEUT % 72.6 % (42.8-82.8); PLATELET COUNT 201 10^3/uL (134-434); RBC 2.61 M/mm3 (3.60-5.2); RDW 13.3 % (11.6-15.6); WHITE BLOOD COUNT 7.9 K/mm3 (4.0-10.0)
[2022-01-12 13:36] LABS: ALLENS TEST POSITIVE
[2022-01-12 14:44] VITALS: BMI 35.0
[2022-01-12 15:55] LABS: CREATININE 0.5 mg/dL (0.55-1.3)
[2022-01-12 15:56] LABS: BILIRUBIN,TOTAL 0.8 mg/dL (0.2-1); TOT PROT 5.6 g/dl (6.4-8.2)
[2022-01-12 18:44] LABS: HEMATOCRIT 24.2 % (32.4-45.2); HEMOGLOBIN 8.7 GM/dL (10.7-15.3); MCH 32.9 pg (25.7-33.7); MEAN CELL VOLUME 91.4 fl (80-96); MEAN PLT VOLUME 8.1 fl (7.5-11.1); PLATELET COUNT 197 10^3/uL (134-434); RBC 2.64 M/mm3 (3.60-5.2); RDW 13.4 % (11.6-15.6); WHITE BLOOD COUNT 8.1 K/mm3 (4.0-10.0)
[2022-01-12] MEDS: ACETAMINOPHEN 1000 MG/100 ML BAG IVPB PRN (21:07)
[2022-01-12] MEDS ORDERED: CHLORHEXIDINE GLUCONATE 4% CLEANSER FOR DECOLONIZATION TP SCH (22:00)
[2022-01-12] MEDS: MUPIROCIN 2% TOPICAL OINTMENT FOR DECOLONIZATION NS SCH (22:44)
[2022-01-12] MEDS: DOCUSATE SODIUM 100 MG CAPSULE (FP) PO SCH (22:44)
[2022-01-13 08:14] LABS: INR 1.04 (0.83-1.09)
[2022-01-13 08:17] LABS: ACTIVATED PTT 26.8 SECONDS (25.2-36.5)
[2022-01-13 08:20] LABS: CALCIUM 8.1 mg/dL (8.5-10.1)
[2022-01-13 08:21] LABS: BLOOD UREA NITROGEN 4.9 mg/dL (7-18); HEMATOCRIT 24.1 % (32.4-45.2); HEMOGLOBIN 8.9 GM/dL (10.7-15.3); MCH 33.7 pg (25.7-33.7); MCHC 36.9 g/dl (32.0-36.0); MEAN CELL VOLUME 91.3 fl (80-96); MEAN PLT VOLUME 8.1 fl (7.5-11.1); PLATELET COUNT 201 10^3/uL (134-434); RBC 2.64 M/mm3 (3.60-5.2); RDW 13.8 % (11.6-15.6); WHITE BLOOD COUNT 6.3 K/mm3 (4.0-10.0)
[2022-01-13 08:24] LABS: CREATININE 0.5 mg/dL (0.55-1.3); PHOSPHOROUS 3.5 mg/dL (2.5-4.9)
[2022-01-13 08:25] LABS: BILIRUBIN,TOTAL 0.8 mg/dL (0.2-1); TOT PROT 5.7 g/dl (6.4-8.2)
[2022-01-13] MEDS: LACTATED RINGERS SOLUTION 1,000 ML/1,000 ML INFUS.BAG IV SCH (08:25)
[2022-01-13] MEDS ORDERED: POLYETHYLENE GLYCOL (HEALTHYLAX) 3350 17 GM PACKET PO SCH ×2 (10:00→22:00)
[2022-01-13] MEDS: MUPIROCIN 2% TOPICAL OINTMENT FOR DECOLONIZATION NS SCH (10:56)
[2022-01-13] MEDS: DOCUSATE SODIUM 100 MG CAPSULE (FP) PO SCH ×2 (10:56→23:14)
[2022-01-13] MEDS: ACETAMINOPHEN 1000 MG/100 ML BAG IVPB PRN (11:01)
[2022-01-13] MEDS ORDERED: MIDAZOLAM HCL 2 MG/2 ML SINGLE DOSE VIAL ONE (12:50)
[2022-01-13] MEDS ORDERED: PROPOFOL 40 ML ONE (12:50)
[2022-01-13] MEDS ORDERED: ROCURONIUM BROMIDE 50 MG/5 ML SYRINGE ONE (12:52)
[2022-01-13] MEDS ORDERED: BUPIVACAINE HCL/PF 0.25% (2.5MG/ML) 10 ML VIAL ONE (13:04)
[2022-01-13] MEDS ORDERED: ONDANSETRON 4 MG/2 ML VIAL ONE (13:35)
[2022-01-13] MEDS ORDERED: cefOXitin SODIUM 2 GM VIAL (RESTRICTED TO ID) IVPB ONE ×3 (13:44→13:46)
[2022-01-13] MEDS ORDERED: KETAMINE HCL 200 MG/20 ML VIAL ONE (13:50)
[2022-01-13] MEDS ORDERED: ONDANSETRON 4 MG/2 ML VIAL IVPUSH PRN ×2 (13:51→14:58)
[2022-01-13] MEDS ORDERED: BUPIVACAINE HCL/PF 0.25% (2.5MG/ML) 10 ML VIAL IJ ONE (13:54)
[2022-01-13] MEDS ORDERED: LACTATED RINGERS SOLUTION 1,000 ML IV SCH ×2 (14:00→14:58)
[2022-01-13] MEDS ORDERED: KETOROLAC TROMETHAMINE 30 MG/1 ML VIAL ONE (14:08)
[2022-01-13] MEDS ORDERED: ACETAMINOPHEN 1000 MG/100 ML BAG IVPB PRN (14:38)
[2022-01-13] MEDS ORDERED: oxyCODONE HCL 5 MG TABLET PO PRN (14:51)
[2022-01-13] MEDS ORDERED: ACETAMINOPHEN 1000 MG/100 ML BAG IVPB SCH (15:00)
[2022-01-13 15:55] LABS: HEMATOCRIT 25.7 % (32.4-45.2); MCH 32.5 pg (25.7-33.7); MCHC 35.2 g/dl (32.0-36.0); MEAN CELL VOLUME 92.3 fl (80-96); MEAN PLT VOLUME 7.8 fl (7.5-11.1); PLATELET COUNT 209 10^3/uL (134-434); RBC 2.78 M/mm3 (3.60-5.2); RDW 13.9 % (11.6-15.6); WHITE BLOOD COUNT 7.2 K/mm3 (4.0-10.0)
[2022-01-13] MEDS ORDERED: ACETAMINOPHEN INJECTION 100 ML IVPB ONE (16:57)
[2022-01-13] MEDS ORDERED: DOCUSATE SODIUM 100 MG CAPSULE (FP) PO SCH (22:00)
[2022-01-13] MEDS ORDERED: MUPIROCIN 2% TOPICAL OINTMENT FOR DECOLONIZATION NS SCH ×2 (22:00)
[2022-01-13] MEDS: POLYETHYLENE GLYCOL (HEALTHYLAX) 3350 17 GM PACKET PO SCH (23:14)
[2022-01-13] MEDS: oxyCODONE HCL 5 MG TABLET PO PRN (23:29)
[2022-01-14] MEDS: ACETAMINOPHEN 1000 MG/100 ML BAG IVPB SCH ×2 (00:13→08:59)
[2022-01-14] MEDS: oxyCODONE HCL 5 MG TABLET PO PRN ×3 (06:47→22:51)
[2022-01-14] MEDS: POLYETHYLENE GLYCOL (HEALTHYLAX) 3350 17 GM PACKET PO SCH ×2 (09:02→21:27)
[2022-01-14] MEDS: DOCUSATE SODIUM 100 MG CAPSULE (FP) PO SCH (09:02)
[2022-01-14 11:11] LABS: BASO % 0.2 % (0-2.0); EOS % 0.1 % (0-4.5); HEMATOCRIT 22.9 % (32.4-45.2); LYMPH % 24.8 % (8-40); MCH 32.4 pg (25.7-33.7); MEAN CELL VOLUME 92.6 fl (80-96); MEAN PLT VOLUME 8.3 fl (7.5-11.1); MONO % 4.4 % (3.8-10.2); NEUT % 70.5 % (42.8-82.8); PLATELET COUNT 196 10^3/uL (134-434); RBC 2.47 M/mm3 (3.60-5.2); RDW 13.8 % (11.6-15.6); WHITE BLOOD COUNT 10.1 K/mm3 (4.0-10.0)
[2022-01-14 11:51] LABS: CALCIUM 8.3 mg/dL (8.5-10.1)
[2022-01-14] MEDS ORDERED: POTASSIUM CHLORIDE TABS 20 MEQ TABLET.ER (FP) PO ONE (11:51)
[2022-01-14 11:52] LABS: BLOOD UREA NITROGEN 5.8 mg/dL (7-18)
[2022-01-14 11:55] LABS: CREATININE 0.6 mg/dL (0.55-1.3)
[2022-01-14 11:56] LABS: BILIRUBIN,TOTAL 0.6 mg/dL (0.2-1); TOT PROT 5.6 g/dl (6.4-8.2)
[2022-01-14] MEDS ORDERED: IBUPROFEN 600 MG TABLET (FP) PO PRN (14:54)
[2022-01-14] MEDS ORDERED: MAGNESIUM SULFATE 16 OZ CRYSTALS TP PRN (15:00)
[2022-01-14] MEDS: PSYLLIUM 5.85 GM PACKET PO SCH ×2 (15:35→21:27)
[2022-01-14] MEDS ORDERED: LACTATED RINGERS SOLUTION 1,000 ML/1,000 ML INFUS.BAG IV SCH (18:15)
[2022-01-14] MEDS: MAGNESIUM SULFATE 16 OZ CRYSTALS TP SCH (21:06)
[2022-01-14 22:08] VITALS: RESP 20
[2022-01-15] MEDS: PSYLLIUM 5.85 GM PACKET PO SCH (09:22)
[2022-01-15] MEDS: POLYETHYLENE GLYCOL (HEALTHYLAX) 3350 17 GM PACKET PO SCH (09:22)
[2022-01-15] MEDS: MAGNESIUM SULFATE 16 OZ CRYSTALS TP SCH (09:23)
[2022-01-15 11:49] LABS: HEMATOCRIT 23.9 % (32.4-45.2); HEMOGLOBIN 8.4 GM/dL (10.7-15.3); MCH 32.7 pg (25.7-33.7); MCHC 35.3 g/dl (32.0-36.0); MEAN CELL VOLUME 92.6 fl (80-96); MEAN PLT VOLUME 8.5 fl (7.5-11.1); PLATELET COUNT 204 10^3/uL (134-434); RBC 2.58 M/mm3 (3.60-5.2); WHITE BLOOD COUNT 7.8 K/mm3 (4.0-10.0)
[2022-01-15 13:00] LABS: ALBUMIN 3.1 g/dl (3.4-5.0); BLOOD UREA NITROGEN 4.7 mg/dL (7-18); CALCIUM 8.3 mg/dL (8.5-10.1); CHOLESTEROL 156 mg/dL (50-200); MAGNESIUM 2.1 mg/dL (1.8-2.4)
[2022-01-15 13:01] LABS: LDL CHOLESTEROL (ONLY SJRH) 82 mg/dL (5-100); TRIGLYCERIDES 185 mg/dL (0-150)
[2022-01-15 13:03] LABS: CREATININE 0.5 mg/dL (0.55-1.3); HDL CHOLESTEROL 50 mg/dL (40-60); PHOSPHOROUS 4.2 mg/dL (2.5-4.9)
[2022-01-15 13:05] LABS: BILIRUBIN,TOTAL 0.7 mg/dL (0.2-1)
[2022-01-15 16:12] VITALS: BP 100/63; PULSE 75; TEMP 99.7
== END 2022-01-15 17:27 | disposition home or self-care (01) | DRG 952 ==
LOC: JER 06:02 → JERBED 08:32 → OBSVTOIN 08:32 → JICU 13:43 → J8W 01-13 20:26
PROVIDERS: ADMIT Internal Medicine; ATTEND Internal Medicine
PROC: 30233N1 Transfusion of Nonautologous Red Blood Cells into Peripheral Vein, Percutaneous Approach (ICD-10-PCS; 2022-01-12)
PROC: 30233N1 Transfusion of Nonautologous Red Blood Cells into Peripheral Vein, Percutaneous Approach (ICD-10-PCS; 2022-01-12)
PROC: 30233L1 Transfusion of Nonautologous Fresh Plasma into Peripheral Vein, Percutaneous Approach (ICD-10-PCS; 2022-01-12)
PROC: 30233K1 Transfusion of Nonautologous Frozen Plasma into Peripheral Vein, Percutaneous Approach (ICD-10-PCS; 2022-01-12)
PROC: 06BY0ZC Excision of Hemorrhoidal Plexus, Open Approach (ICD-10-PCS; principal; 2022-01-13 13:00)
DX: D62 Acute posthemorrhagic anemia (principal); K64.3 Fourth degree hemorrhoids; R57.8 Other shock; I95.89 Other hypotension; K83.8 Other specified diseases of biliary tract; E66.9 Obesity, unspecified; K62.5 Hemorrhage of anus and rectum; R74.01 Elevation of levels of liver transaminase levels; Z68.35 Body mass index [BMI] 35.0-35.9, adult
CPT/HCPCS: 36415; 36600; 74174-TC; 76705-TC; 80053; 80061; 81003; 82272; 82803; 83036; 83735; 84100; 84703; 85025; 85027; 85384; 85610; 85730; 86922; 87086; 88304-TC; 93005; 93010; 94760; 99285-25; C9803-CS; P9017; P9058; U0003; U0005

== ENCOUNTER 2022-04-03 20:22 | Emergency (ER) | payer OTHER ==
[2022-04-03 20:35] VITALS: BP 114/69; PULSE 69; RESP 18; TEMP 98; BMI 34.2
[2022-04-03 22:40] LABS: HEMATOCRIT 34.4 % (32.4-45.2); HEMOGLOBIN 11.3 GM/dL (10.7-15.3); MCH 26.8 pg (25.7-33.7); MEAN CELL VOLUME 81.8 fl (80-96); WHITE BLOOD COUNT 6.6 K/mm3 (4.0-10.0)
[2022-04-03 22:41] LABS: BASO % 0.7 % (0-2.0); EOS % 2.6 % (0-4.5); LYMPH % 46.6 % (8-40); MCHC 32.8 g/dl (32.0-36.0); MEAN PLT VOLUME 9.3 fl (7.5-11.1); MONO % 6.6 % (3.8-10.2); NEUT % 43.5 % (42.8-82.8); PLATELET COUNT 275 10^3/uL (134-434)
[2022-04-03 23:08] LABS: ALBUMIN 3.6 g/dl (3.4-5.0); BLOOD UREA NITROGEN 11.6 mg/dL (7-18)
[2022-04-03 23:11] LABS: CREATININE 0.8 mg/dL (0.55-1.3)
[2022-04-03 23:13] LABS: BILIRUBIN,TOTAL 0.2 mg/dL (0.2-1); TOT PROT 7.1 g/dl (6.4-8.2)
== END 2022-04-04 00:26 | disposition home or self-care (01) ==
LOC: JER 20:22
DX: K62.9 Disease of anus and rectum, unspecified (principal); K62.5 Hemorrhage of anus and rectum; K64.4 Residual hemorrhoidal skin tags
CPT/HCPCS: 36415; 80053; 82272; 85025; 86850; 86900; 86901; 99283-25